=== PATIENT | female | born 1955 | race African-American/Black ===

== ENCOUNTER 2020-07-01 08:05 | Observation (INO) ==
[2020-07-01 08:34] LABS: Basophils % 0.2 % (0.0-0.8); Eosinophils # 0.1 10*3/uL (0.0-0.87); Eosinophils % 0.9 % (0.00-10.9); Hematocrit 38.2 VOL% (35.7-47.0); Hemoglobin 12.5 GM/DL (12.0-16.0); Immature Granulocytes % 0.2 %; Immature Granulocytes Absolute 0.02 #; Lymphocytes # 2.5 10*3/uL (1.4-4.0); Lymphocytes % 26.8 % (21.3-54.2); Mean Corpuscular HGB Conc 32.7 GM/DL (32-36); Mean Corpuscular Volume 85.3 FL (87-102); Mean Platelet Volume 12.1 FL (9.6-12.0); Monocytes % 5.5 % (1.7-12.7); Neutrophils % 66.4 % (38.7-73.9); Platelet Count 261 T/CUMM (130-400); Red Blood Count 4.48 MC/CUMM (3.8-5.5); Red Cell Distribution Width 15.1 % (9.3-17.3); White Blood Count 9.2 T/CUMM (4-12)
[2020-07-01 08:50] LABS: Platelet Estimate Adequate
[2020-07-01 09:02] LABS: Albumin 3.3 G/DL (3.4-5.0); Bilirubin,Total 0.6 MG/DL (0.2-1.0); Calcium 8.8 MG/DL (8.5-10.1); Osmolality,Calculated 280.3 MOS/KG (273-304); Total Protein 6.8 G/DL (6.4-8.3)
[2020-07-01] MEDS ORDERED: FUROSEMIDE 40 MG/4 ML VIAL IV STA (13:32)
[2020-07-01] MEDS ORDERED: DOCUSATE SODIUM 100 MG CAPSULE PO PRN (15:53)
[2020-07-01] MEDS ORDERED: ACETAMINOPHEN 325 MG TABLET PO PRN (15:53)
[2020-07-01] MEDS ORDERED: ONDANSETRON 4 MG/2 ML VIAL IV PRN (15:53)
[2020-07-01] MEDS ORDERED: hydrALAZINE 20 MG/1 ML VIAL IV PRN (15:53)
[2020-07-01] MEDS ORDERED: DEXTROSE 50% 25 GM/50 ML VIAL IV PRN (15:53)
[2020-07-01] MEDS ORDERED: GLUCAGON 1 MG VIAL IM PRN (15:53)
[2020-07-01] MEDS ORDERED: POTASSIUM CHLORIDE 20 MEQ TABLET PO ONE (16:32)
[2020-07-01] MEDS ORDERED: ALBUTEROL 2.5 MG/3 ML NEB RESP TX PRN (16:38)
[2020-07-01] MEDS ORDERED: POTASSIUM CHLORIDE 20 MEQ TABLET PO STA (16:40)
[2020-07-01] MEDS: carvediloL 6.25 MG TABLET PO SCH (18:05)
[2020-07-01] MEDS: MORPHINE 4 MG/1 ML VIAL IV PRN (20:04)
[2020-07-01] MEDS: FUROSEMIDE 40 MG/4 ML VIAL IV SCH (21:29)
[2020-07-01] MEDS: INSULIN LISPRO 100 UNIT/ML SUBCUT SCH (21:30)
[2020-07-01] MEDS: ENOXAPARIN 40 MG/0.4 ML SYRINGE SUBCUT SCH (21:30)
[2020-07-02] MEDS: MORPHINE 4 MG/1 ML VIAL IV PRN ×3 (00:17→23:42)
[2020-07-02 06:42] LABS: Calcium 8.8 MG/DL (8.5-10.1); Osmolality,Calculated 280.4 MOS/KG (273-304); Risk Ratio 4.73; Thyroid Stimulating Hormone 1.63 uIU/ml (0.358-3.74); VLDL CHOLESTEROL 14.8 MG/DL
[2020-07-02] MEDS: FUROSEMIDE 40 MG/4 ML VIAL IV SCH ×2 (07:08→17:55)
[2020-07-02] MEDS: INSULIN LISPRO 100 UNIT/ML SUBCUT SCH ×4 (07:50→20:13)
[2020-07-02] MEDS: ZINC GLUCONATE 50 MG TABLET PO SCH (08:11)
[2020-07-02] MEDS: carvediloL 6.25 MG TABLET PO SCH ×2 (08:11→17:41)
[2020-07-02] MEDS: MONTELUKAST 10 MG TABLET PO SCH (08:11)
[2020-07-02 08:47] LABS: Bilirubin,Urine Negative (Negative); Blood, Urine Negative (Negative); Glucose,Urine (UA) Negative (Negative); Ketones,Urine Negative (Negative); Nitrite,Urine Negative (Negative); Protein,Urine Negative; RBC,Urine 1 /HPF (0-4); Squamous Epithelial Cell,Urine Occasional /HPF (0-10); Urine Appearance CLEAR (Clear); Urine Color Colorless (Yellow); Urine Specific Gravity 1.006 (1.001-1.035); Urine Urobilinogen < 2.0 EU/DL (0.2-1.0); WBC,Urine <1 /HPF (0-6)
[2020-07-02] MEDS ORDERED: LOSARTAN 25 MG TABLET PO SCH (09:00)
[2020-07-02] MEDS ORDERED: diphenhydrAMINE CAP 25 MG CAPSULE PO ONE (13:42)
[2020-07-02] MEDS ORDERED: MAGNESIUM SULF RIDER 2 GM in PREMIX 1 EACH IV PRN (13:42)
[2020-07-02] MEDS ORDERED: DIAZEPAM 5 MG TABLET PO ONE (13:42)
[2020-07-02] MEDS ORDERED: POTASSIUM CHLORIDE RIDER 10 MEQ in PREMIX 1 EACH IV PRN (13:42)
[2020-07-02] MEDS ORDERED: LIDOCAINE 1% 20 ML VIAL ONE ×2 (13:45→15:24)
[2020-07-02] MEDS ORDERED: HEPARIN/NACL 0.9% 2 UNITS/ML 1,000 ML IV ONE (13:45)
[2020-07-02] MEDS: ASPIRIN EC 81 MG TABLET PO SCH (14:04)
[2020-07-02] MEDS ORDERED: HYDROmorphone 2 MG/1 ML VIAL ONE (14:17)
[2020-07-02] MEDS ORDERED: MIDAZOLAM 2 MG/2 ML VIAL ONE (14:17)
[2020-07-02] MEDS ORDERED: NITROGLYCERIN DRIP 50 MG/250 ML BOTTLE IV ONE (14:23)
[2020-07-02] MEDS ORDERED: VERAPAMIL 5 MG/2 ML VIAL ONE ×2 (14:24→14:46)
[2020-07-02] MEDS ORDERED: diphenhydrAMINE 50 MG/1 ML VIAL ONE (14:31)
[2020-07-02] MEDS ORDERED: ENOXAPARIN 30 MG/0.3 ML SYRINGE ONE (14:41)
[2020-07-02] MEDS ORDERED: HEPARIN/NACL 0.9% 2 UNITS/ML 500 ML IV ONE (15:11)
[2020-07-02] MEDS ORDERED: DEXTROSE 50% 25 GM/50 ML VIAL IV PRN (16:07)
[2020-07-02] MEDS ORDERED: GLUCAGON 1 MG VIAL IM PRN (16:07)
[2020-07-02] MEDS ORDERED: NALOXONE 0.4 MG/ML VIAL ONE (16:27)
[2020-07-02] MEDS: ENOXAPARIN 40 MG/0.4 ML SYRINGE SUBCUT SCH (21:11)
[2020-07-03 04:55] LABS: Basophils % 0.2 % (0.0-0.8); Eosinophils % 0.4 % (0.00-10.9); Hematocrit 38.6 VOL% (35.7-47.0); Hemoglobin 12.4 GM/DL (12.0-16.0); Immature Granulocytes % 0.2 %; Immature Granulocytes Absolute 0.02 #; Lymphocytes # 1.7 10*3/uL (1.4-4.0); Lymphocytes % 17.8 % (21.3-54.2); Mean Corpuscular HGB Conc 32.1 GM/DL (32-36); Mean Corpuscular Volume 86.7 FL (87-102); Monocytes % 8.2 % (1.7-12.7); Neutrophils % 73.2 % (38.7-73.9); Platelet Count 247 T/CUMM (130-400); Red Blood Count 4.45 MC/CUMM (3.8-5.5); Red Cell Distribution Width 14.9 % (9.3-17.3); White Blood Count 9.8 T/CUMM (4-12)
[2020-07-03] MEDS: FUROSEMIDE 40 MG/4 ML VIAL IV SCH (05:23)
[2020-07-03 05:34] LABS: Calcium 8.7 MG/DL (8.5-10.1); Osmolality,Calculated 276.8 MOS/KG (273-304)
[2020-07-03 05:35] LABS: Calcium 8.9 MG/DL (8.5-10.1); Osmolality,Calculated 282.4 MOS/KG (273-304)
[2020-07-03] MEDS ORDERED: POTASSIUM CHLORIDE 20 MEQ TABLET PO ONE (08:30)
[2020-07-03] MEDS ORDERED: SACUBITRIL/VALSARTAN 49-51 MG TABLET PO SCH (09:00)
[2020-07-03] MEDS: ZINC GLUCONATE 50 MG TABLET PO SCH (09:46)
[2020-07-03] MEDS: carvediloL 6.25 MG TABLET PO SCH (09:46)
[2020-07-03] MEDS: MONTELUKAST 10 MG TABLET PO SCH (09:46)
[2020-07-03] MEDS: ASPIRIN EC 81 MG TABLET PO SCH (09:46)
[2020-07-03] MEDS: INSULIN LISPRO 100 UNIT/ML SUBCUT SCH ×2 (10:04→14:04)
[2020-07-03 12:07] VITALS: BP 108/54
== END 2020-07-03 18:32 | disposition home or self-care (01) ==
LOC: N.ED 08:05 → N.EDINP 08:05 → SUATTDRO 15:53 → N.3E 22:50
PROVIDERS: ADMIT Internal Medicine; ATTEND Internal Medicine